=== PATIENT | female | born 1930 | race Caucasian/White ===

== ENCOUNTER → 2016-11-08 | Outpatient (REF) | payer MEDICARE, OTHER ==
[2016-11-09 15:09] LABS: FERRITIN 23 NG/ML (8-252); PERCENT SATURATION 17.4 % (13.2-37.4); TOTAL IRON BINDING CAPACITY 385 UG/DL (250-450)
[2016-11-09 15:28] LABS: FOLATE > 24.0 NG/ML; VITAMIN B12 LEVEL 313 PG/ML
== END ==
LOC: M LAB REF 13:43
PROVIDERS: ATTEND Internal Medicine
DX: D64.9 Anemia, unspecified (principal)